=== PATIENT | male | born 1950 | race African-American/Black ===

== ENCOUNTER 2018-02-18 08:48 | Inpatient (IN) | payer MEDICAID ==
[~2018-02-18] VITALS: Ht 182.9 cm; Wt 86.2 kg
[~2018-02-18 08:48] MED LIST: AMLO10TA80 PO; AMLO5TAB4 PO; FAMO20TA8 PO; LOT10 PO; MONT10TA24 PO; P20 PO
[2018-02-18 10:07] LABS: BG CARBOXYHEMOGLOBIN 0.3 % (0.5-1.5); BG DEOXYHEMOGLOBIN 2.2 % (0.0-5.0); BG FRACTION INSPIRED OXYGEN 21; BG HCO3 ACT 16.7 mmol/L (22.0-26.0); BG METHEMOGLOBIN 0.2 % (0.0-1.5); BG OXYGEN SATURATION 97.8 % (92.0-98.5); BG OXYHEMOGLOBIN 97.3 % (94.0-97.0); BG PH 7.393 (7.350-7.450); BG PO2 98.5 mmHg (75.0-100.0); BG SAMPLE SITE RIGHT RADIAL; BG TOTAL HEMOGLOBIN 10.9 g/dL (12.0-18.0); BG VENT MODE ROOM AIR
[2018-02-18 10:09] LABS: BASOPHILS % 0.9 % (0.0-2.0); EOSINOPHILS % 3.3 % (0.0-5.0); HEMATOCRIT. 33.2 % (42.0-52.0); HEMOGLOBIN. 10.7 g/dL (14.0-18.0); LYMPHOCYTES % 12.2 % (20.0-50.0); MEAN CORPUSCULAR HEMOGLOBIN 26.8 pg (28.0-32.0); MEAN CORPUSCULAR VOLUME 83.4 fL (80.0-94.0); MEAN PLATELET VOLUME 7.9 fl (7.4-10.4); MONOCYTES % 8.9 % (2.0-8.0); NEUTROPHILS % 74.7 % (40.0-76.0); PLATELET 143 x1000/uL (130-400); RED BLOOD CELL COUNT 3.99 mill/uL (4.7-6.1); RED CELL DISTRIBUTION WIDTH 15.3 % (11.6-14.6)
[2018-02-18 10:15] LABS: PARTIAL THROMBOPLASTIN TIME 22.6 sec (23.4-31.0); PROTHROMBIN TIME 10.4 sec (9.4-11.6)
[2018-02-18] MEDS ORDERED: SODIUM BICARBONATE 8.4% 1 MEQ/ML 50ML SYR IV ONE (10:15)
[2018-02-18] MEDS ORDERED: DEXTROSE 50% WATER 50ML SYRINGE IV ONE (10:15)
[2018-02-18] MEDS ORDERED: INSULIN REGULAR (HUMULIN R) 300UNITS/3ML IV ONE (10:15)
[2018-02-18] MEDS ORDERED: CALCIUM CHLORIDE 1GM/10ML SYR IV ONE (10:15)
[2018-02-18] MEDS ORDERED: SODIUM POLYSTYRENE SULFONATE 15 G/60 ML BOT PO ONE (10:15)
[2018-02-18 10:23] LABS: PHOSPHORUS 4.2 mg/dL (2.5-4.9)
[2018-02-18 12:00] VITALS: BP 149/97
[2018-02-18] MEDS ORDERED: HEPARIN SODIUM 1,000 UNIT/1ML VIAL IV NR (14:30)
[2018-02-18] MEDS: HYDROCODONE/APAP 7.5/325MG 1 TAB TABLET PO PRN ×2 (15:57→22:35)
[2018-02-18] MEDS ORDERED: EPOETIN ALFA 4000UNITS/ML VIAL SUBCUT ONE (16:30)
[2018-02-18] MEDS: IRON SUCROSE COMPLEX 100 MG/5 ML ML IV SCH (18:50)
[2018-02-18 20:00] VITALS: BP 154/65
[2018-02-18 21:30] VITALS: BP 128/86
[2018-02-18] MEDS: AMLODIPINE 10MG TABLET PO SCH (21:37)
[2018-02-18] MEDS ORDERED: ZOLPIDEM TARTRATE 5MG TABLET PO PRN (22:00)
[2018-02-19] VITALS: BP 151/73
[2018-02-19 04:00] VITALS: BP 143/62
[2018-02-19 06:55] LABS: BASOPHILS % 0.6 % (0.0-2.0); EOSINOPHILS % 3.6 % (0.0-5.0); HEMATOCRIT. 34.1 % (42.0-52.0); HEMOGLOBIN. 11.2 g/dL (14.0-18.0); LYMPHOCYTES % 17.9 % (20.0-50.0); MEAN CORPUSCULAR HEMOGLOBIN 27.3 pg (28.0-32.0); MEAN CORPUSCULAR VOLUME 82.8 fL (80.0-94.0); MEAN PLATELET VOLUME 8.1 fl (7.4-10.4); MONOCYTES % 9.9 % (2.0-8.0); PLATELET 148 x1000/uL (130-400); RED BLOOD CELL COUNT 4.12 mill/uL (4.7-6.1); RED CELL DISTRIBUTION WIDTH 15.2 % (11.6-14.6)
[2018-02-19 08:00] VITALS: BP 128/81
[2018-02-19] MEDS: AMLODIPINE 10MG TABLET PO SCH (08:31)
[2018-02-19] MEDS: IRON SUCROSE COMPLEX 100 MG/5 ML ML IV SCH (08:32)
[2018-02-19] MEDS ORDERED: MONTELUKAST SODIUM 10MG TABLET PO SCH (09:00)
[2018-02-19] MEDS ORDERED: EPOETIN ALFA 10000UNITS/ML VIAL SUBCUT NR (21:00)
== END 2018-02-19 09:20 | disposition left against medical advice (07) | DRG 469 ==
LOC: ER 08:48 → ENRESERV 09:53 → 8WST 10:34 → EDBEDREQ 10:42
PROVIDERS: ADMIT Internal Medicine; ATTEND Internal Medicine
PROC: 5A1D70Z Performance of Urinary Filtration, Intermittent, Less than 6 Hours Per Day (ICD-10-PCS; principal; 2018-02-18)
DX: N17.9 Acute kidney failure, unspecified (principal); I12.0 Hypertensive chronic kidney disease with stage 5 chronic kidney disease or end stage renal disease; E87.8 Other disorders of electrolyte and fluid balance, not elsewhere classified; E87.5 Hyperkalemia; N18.6 End stage renal disease; D64.9 Anemia, unspecified; N40.0 Benign prostatic hyperplasia without lower urinary tract symptoms; B19.20 Unspecified viral hepatitis C without hepatic coma; J45.909 Unspecified asthma, uncomplicated; Z53.21 Procedure and treatment not carried out due to patient leaving prior to being seen by health care provider; Z99.2 Dependence on renal dialysis; Z91.19 Patient's noncompliance with other medical treatment and regimen; Z79.899 Other long term (current) drug therapy; Z88.8 Allergy status to other drugs, medicaments and biological substances
CPT/HCPCS: 36415; 36600; 71045; 80048; 82375; 82805; 83735; 84100; 84484; 85025; 85610; 85730; 93005; 96374; 99291; C1893; J1644; J3490; J7030

== ENCOUNTER 2018-03-25 09:41 | Emergency (ER) | payer MEDICAID ==
[~2018-03-25] VITALS: Ht 177.8 cm; Wt 76.0 kg
[2018-03-25 12:02] LABS: BASOPHILS % 0.4 % (0.0-2.0); EOSINOPHILS % 2.7 % (0.0-5.0); HEMATOCRIT. 28.6 % (42.0-52.0); HEMOGLOBIN. 9.7 g/dL (14.0-18.0); LYMPHOCYTES % 13.4 % (20.0-50.0); MEAN CORPUSCULAR HEMOGLOBIN 28.6 pg (28.0-32.0); MEAN CORPUSCULAR VOLUME 84.3 fL (80.0-94.0); MEAN PLATELET VOLUME 8.2 fl (7.4-10.4); MONOCYTES % 8.9 % (2.0-8.0); NEUTROPHILS % 74.6 % (40.0-76.0); PLATELET 154 x1000/uL (130-400); RED BLOOD CELL COUNT 3.39 mill/uL (4.7-6.1); RED CELL DISTRIBUTION WIDTH 17.5 % (11.6-14.6)
[2018-03-25 12:10] LABS: PARTIAL THROMBOPLASTIN TIME 24.7 sec (23.4-31.0); PROTHROMBIN TIME 10.1 sec (9.1-11.1)
[2018-03-25 12:12] LABS: PHOSPHORUS 3.2 mg/dL (2.5-4.9)
[2018-03-25 13:19] LABS: HEPATITIS B SURFACE ANTIGEN NEGATIVE
[2018-03-25] MEDS ORDERED: HYDROCODONE/ACETAMINOPHEN 5/325MG TABLET PO PRN (13:45)
[2018-03-25] MEDS ORDERED: LIDOCAINE HCL 1% 20ML VIAL (Pyxis) INJ ONE (14:54)
[2018-03-25] MEDS ORDERED: SODIUM BICARBONATE 4% (2.4MEQ) 5ML VIAL IV ONE (14:54)
[2018-03-25] MEDS ORDERED: HEPARIN 1000 UNITS/ML 10ML ONE (14:55)
[2018-03-25 16:22] VITALS: BP 140/80
[2018-03-25] MEDS ORDERED: ACETAMINOPHEN 325MG TABLET PO PRN (17:00)
[2018-03-25] MEDS ORDERED: CLONIDINE 0.1MG TABLET PO PRN (17:00)
[2018-03-25] MEDS ORDERED: DIPHENHYDRAMINE 50MG/ML VIAL IV PRN (17:00)
[2018-03-25] MEDS ORDERED: AMLODIPINE 10MG TABLET PO SCH (21:00)
== END 2018-03-25 16:26 | disposition left against medical advice (07) ==
LOC: ER 09:41 → EDBEDREQ 12:32 → ENRESERV 13:03 → CANRESERV 13:03 → ER 16:26 → CANBEDREQ 18:00
DX: T82.42XA Displacement of vascular dialysis catheter, initial encounter (principal); I13.2 Hypertensive heart and chronic kidney disease with heart failure and with stage 5 chronic kidney disease, or end stage renal disease; N18.6 End stage renal disease; E87.8 Other disorders of electrolyte and fluid balance, not elsewhere classified; D64.9 Anemia, unspecified; J45.909 Unspecified asthma, uncomplicated; Z99.2 Dependence on renal dialysis; Z91.15 Patient's noncompliance with renal dialysis; Z88.8 Allergy status to other drugs, medicaments and biological substances; Z86.19 Personal history of other infectious and parasitic diseases
CPT/HCPCS: 36415; 36558; 71045; 76937; 77001; 80048; 83735; 84100; 85025; 85610; 85730; 99285; C1750; J1644; J3490; Z7610

== ENCOUNTER 2018-10-09 11:36 | Inpatient (IN) | payer MEDICARE, MEDICAID ==
[~2018-10-09] VITALS: Ht 182.9 cm; Wt 79.4 kg
[~2018-10-09 11:36] MED LIST changes: +ALBU18HF2 IH; -AMLO5TAB4 PO; +FURO20TA4 MT; -P20 PO
[2018-10-09] MEDS ORDERED: ONDANSETRON HCL 4MG/2ML INJ IV STA (16:21)
[2018-10-09] MEDS ORDERED: TRAMADOL 50MG TABLET PO ONE (16:30)
[2018-10-09 17:01] LABS: INR 1.1; PROTHROMBIN TIME 11.1 sec (9.1-11.1)
[2018-10-09 17:05] LABS: BASOPHILS % 0.7 % (0.0-2.0); EOSINOPHILS % 3.3 % (0.0-5.0); HEMATOCRIT. 37.9 % (42.0-52.0); HEMOGLOBIN. 12.2 g/dL (14.0-18.0); LYMPHOCYTES % 21.9 % (20.0-50.0); MEAN CORPUSCULAR HEMOGLOBIN 26.7 pg (28.0-32.0); MEAN CORPUSCULAR VOLUME 82.7 fL (80.0-94.0); MEAN PLATELET VOLUME 7.7 fl (7.4-10.4); MONOCYTES % 7.6 % (2.0-8.0); NEUTROPHILS % 66.5 % (40.0-76.0); PLATELET 155 x1000/uL (130-400); RED BLOOD CELL COUNT 4.59 mill/uL (4.7-6.1); RED CELL DISTRIBUTION WIDTH 15.2 % (11.6-14.6)
[2018-10-09 17:11] LABS: CHLORIDE 103 mEq/L (98-107)
[2018-10-09] MEDS ORDERED: VANCOMYCIN 1 G PREMIX 200 ML IV ONE (17:30)
[2018-10-09] MEDS ORDERED: PIPERACILLIN/TAZ 3.375G PREMIX 50 ML IV ONE (17:30)
[2018-10-10] MEDS ORDERED: IPRATROPIUM/ALBUTEROL 0.5-3(2.5)MG/3ML NEB HHN PRN (01:45)
[2018-10-10] MEDS ORDERED: ACETAMINOPHEN 325MG TABLET PO PRN (09:00)
[2018-10-10] MEDS ORDERED: ONDANSETRON HCL 4MG/2ML INJ IV PRN (09:00)
[2018-10-10 09:24] LABS: BASOPHILS % 0.7 % (0.0-2.0); HEMATOCRIT. 39.5 % (42.0-52.0); HEMOGLOBIN. 12.8 g/dL (14.0-18.0); LYMPHOCYTES % 18.9 % (20.0-50.0); MONOCYTES % 7.4 % (2.0-8.0); RED BLOOD CELL COUNT 4.76 mill/uL (4.7-6.1); RED CELL DISTRIBUTION WIDTH 15.4 % (11.6-14.6)
[2018-10-10 09:47] LABS: PLATELET 136 x1000/uL (130-400)
[2018-10-10] MEDS ORDERED: AMLODIPINE 5MG TABLET PO NR (10:00)
[2018-10-10] MEDS: HYDROCODONE/ACETAMINOPHEN 10/325MG TABLET PO PRN ×3 (14:05→23:06)
[2018-10-10] MEDS: LOSARTAN POTASSIUM 100 MG TABLET PO SCH (14:52)
[2018-10-10 15:56] VITALS: BP_SYST 171; BP_SYST 173; BP_DIAS 104; BP_DIAS 93; BP_DIAS 99
[2018-10-10 16:07] VITALS: BP 189/106
[2018-10-10] MEDS ORDERED: FERR325T30 PO (16:13)
[2018-10-10] MEDS ORDERED: CLONIDINE 0.1MG TABLET PO PRN (16:30)
[2018-10-10 18:00] VITALS: BP 150/85
[2018-10-10] MEDS ORDERED: HYDROCODONE/ACETAMINOPHEN 10/325MG TABLET PO PRN (18:00)
[2018-10-10 20:00] VITALS: BP 130/76
[2018-10-10] MEDS ORDERED: AMLODIPINE 5MG TABLET PO SCH ×2 (21:00)
[2018-10-10] MEDS: AMLODIPINE 5MG TABLET PO SCH (21:06)
[2018-10-10] MEDS: DIPHENHYDRAMINE 25MG CAPSULE PO PRN (23:05)
[2018-10-11] VITALS: BP 139/79
[2018-10-11 04:00] VITALS: BP_SYST 134; BP_SYST 137; BP_SYST 138; BP_DIAS 77; BP_DIAS 78; BP_DIAS 80
[2018-10-11] MEDS: DIPHENHYDRAMINE 25MG CAPSULE PO PRN (07:18)
[2018-10-11] MEDS: HYDROCODONE/ACETAMINOPHEN 10/325MG TABLET PO PRN ×3 (07:18→18:37)
[2018-10-11 08:00] VITALS: BP 147/83
[2018-10-11] MEDS: AMLODIPINE 5MG TABLET PO SCH (09:00)
[2018-10-11] MEDS: LOSARTAN POTASSIUM 100 MG TABLET PO SCH (09:00)
[2018-10-11] MEDS ORDERED: DIPHENHYDRAMINE 50MG/ML VIAL IV PRN (13:15)
[2018-10-11] MEDS ORDERED: CEFTRIAXONE 1,000 MG in DEXTROSE 5% WATER 50 ML IV SCH (18:00)
[2018-10-11] MEDS: FAMOTIDINE 20MG/2ML VIAL IV SCH (18:24)
[2018-10-11] MEDS: METHYLPREDNISOLONE SOD SUCC 40 MG/ML VIAL IV SCH (18:24)
[2018-10-11 20:00] VITALS: BP_SYST 119; BP_SYST 138; BP_SYST 145; BP_DIAS 71; BP_DIAS 84; BP_DIAS 90
[2018-10-11] MEDS: HYDRALAZINE HCL 50MG TABLET PO SCH (21:00)
[2018-10-11] MEDS: METOPROLOL TARTRATE 50MG TABLET PO SCH (21:00)
[2018-10-12] VITALS: BP 140/83
[2018-10-12] MEDS: METHYLPREDNISOLONE SOD SUCC 40 MG/ML VIAL IV SCH ×2 (02:08→09:10)
[2018-10-12 04:00] VITALS: BP 137/86
[2018-10-12 08:12] VITALS: BP 165/97
[2018-10-12] MEDS: HYDRALAZINE HCL 50MG TABLET PO SCH (08:16)
[2018-10-12] MEDS: FAMOTIDINE 20MG/2ML VIAL IV SCH (08:16)
[2018-10-12] MEDS: DIPHENHYDRAMINE 25MG CAPSULE PO PRN (08:16)
[2018-10-12] MEDS: HYDROCODONE/ACETAMINOPHEN 10/325MG TABLET PO PRN (08:16)
[2018-10-12] MEDS: METOPROLOL TARTRATE 50MG TABLET PO SCH (08:16)
[2018-10-12 10:28] VITALS: BP 144/84
== END 2018-10-12 12:25 | disposition home or self-care (01) | DRG 720 ==
LOC: ER 11:36 → EDBEDREQSVC 17:50 → EDBEDREQ 17:50 → ENRESERV 10-10 13:36 → ER 10-10 15:12 → 8WST 10-10 15:34 → OBSVTOIN 10-10 15:34
PROVIDERS: ADMIT Internal Medicine; ATTEND Internal Medicine
PROC: 5A1D70Z Performance of Urinary Filtration, Intermittent, Less than 6 Hours Per Day (ICD-10-PCS; principal; 2018-10-11)
DX: A41.9 Sepsis, unspecified organism (principal); I13.2 Hypertensive heart and chronic kidney disease with heart failure and with stage 5 chronic kidney disease, or end stage renal disease; N18.6 End stage renal disease; I42.9 Cardiomyopathy, unspecified; G90.8 Other disorders of autonomic nervous system; J44.9 Chronic obstructive pulmonary disease, unspecified; B19.20 Unspecified viral hepatitis C without hepatic coma; J98.11 Atelectasis; G89.29 Other chronic pain; D63.8 Anemia in other chronic diseases classified elsewhere; N39.0 Urinary tract infection, site not specified; R26.2 Difficulty in walking, not elsewhere classified; M54.5 Low back pain; I50.21 Acute systolic (congestive) heart failure; T78.3XXA Angioneurotic edema, initial encounter; Z88.8 Allergy status to other drugs, medicaments and biological substances; Z99.2 Dependence on renal dialysis
CPT/HCPCS: 36415; 71045; 80048; 83605; 84145; 84484; 87077; 87186; 93005; 93306; 93970; 96365; 96375; 97162; 99285; J0696; J1200; J2405; J2543; J2920; J3370; J3490; J7040; J7060; Q0163

== ENCOUNTER 2018-10-25 06:29 | Inpatient (IN) | payer MEDICARE, MEDICAID ==
[~2018-10-25] VITALS: Ht 182.9 cm; Wt 82.1 kg
[~2018-10-25 06:29] MED LIST changes: -AMLO10TA80 PO; +FERR325T30 PO; -LOT10 PO
[2018-10-25] MEDS ORDERED: SODIUM CHLORIDE 0.9% 1,000 ML IV ONE (06:37)
[2018-10-25] MEDS ORDERED: ADENOSINE 3 MG/ML 2ML VIAL IV ONE ×2 (06:45)
[2018-10-25 06:53] LABS: BASOPHILS % 0.5 % (0.0-2.0); CHLORIDE 114 mEq/L (98-107); EOSINOPHILS % 2.4 % (0.0-5.0); HEMATOCRIT. 37.6 % (42.0-52.0); LYMPHOCYTES % 16.8 % (20.0-50.0); MEAN CORPUSCULAR HEMOGLOBIN 27.1 pg (28.0-32.0); MEAN CORPUSCULAR VOLUME 85.3 fL (80.0-94.0); MEAN PLATELET VOLUME 7.9 fl (7.4-10.4); MONOCYTES % 6.8 % (2.0-8.0); NEUTROPHILS % 73.5 % (40.0-76.0); PLATELET 124 x1000/uL (130-400); RED BLOOD CELL COUNT 4.41 mill/uL (4.7-6.1); RED CELL DISTRIBUTION WIDTH 16.9 % (11.6-14.6)
[2018-10-25 06:55] LABS: INR 1.1; PROTHROMBIN TIME 10.8 sec (9.1-11.1)
[2018-10-25] MEDS ORDERED: MIDAZOLAM HCL 2 MG/2 ML VIAL IV ONE ×2 (07:00→07:15)
[2018-10-25] MEDS ORDERED: MIDAZOLAM HCL 2 MG/2 ML VIAL ONE (07:02)
[2018-10-25] MEDS ORDERED: METOPROLOL TARTRATE 25MG TABLET PO ONE (07:15)
[2018-10-25] MEDS ORDERED: ASPIRIN 81MG TABLET PO ONE (07:30)
[2018-10-25] MEDS ORDERED: NITROGLYCERIN OINT 1GM/INCH UDPKT TD ONE ×2 (08:45→15:00)
[2018-10-25] MEDS ORDERED: HYDROCODONE/ACETAMINOPHEN 5/325MG TABLET PO ONE (11:45)
[2018-10-25] MEDS ORDERED: FUROSEMIDE 40MG/4ML VIAL IVP ONE (15:00)
[2018-10-25] MEDS ORDERED: ALBUTEROL (0.083%) 2.5MG/3ML NEB HHN STA (15:48)
[2018-10-25] MEDS ORDERED: IPRATROPIUM/ALBUTEROL 0.5-3(2.5)MG/3ML NEB HHN PRN (17:00)
[2018-10-25] MEDS ORDERED: METOPROLOL TARTRATE 25MG TABLET PO NR (17:00)
[2018-10-25 17:27] LABS: BG BASE EXCESS -3.9 mmol/L (-2.0-2.0); BG BILEVEL POS AIRWAY PRESSURE 15/5; BG CARBOXYHEMOGLOBIN 0.3 % (0.5-1.5); BG DEOXYHEMOGLOBIN 0.8 % (0.0-5.0); BG HCO3 ACT 19.6 mmol/L (22.0-26.0); BG METHEMOGLOBIN 0.3 % (0.0-1.5); BG OXYGEN SATURATION 99.2 % (92.0-98.5); BG OXYHEMOGLOBIN 98.6 % (94.0-97.0); BG PCO2 30.7 mmHg (35.0-45.0); BG PH 7.423 (7.350-7.450); BG PO2 232.1 mmHg (75.0-100.0); BG SAMPLE SITE RIGHT RADIAL; BG TOTAL HEMOGLOBIN 11.4 g/dL (12.0-18.0); BG VENT MODE MASK - BIPAP; BG VENT RATE 14 set
[2018-10-25] MEDS ORDERED: MORPHINE SULFATE 4 MG/ML CPJ (NOT FOR IM USE) IV NR (18:30)
[2018-10-25] MEDS ORDERED: DOCUSATE SODIUM 100MG CAPSULE PO PRN (18:45)
[2018-10-25] MEDS ORDERED: ONDANSETRON HCL 4MG/2ML INJ IV PRN (18:45)
[2018-10-25] MEDS ORDERED: DIGOXIN 500MCG/2ML AMP IV NR (19:00)
[2018-10-25] MEDS ORDERED: FUROSEMIDE 40MG/4ML VIAL IV NR (20:15)
[2018-10-25 22:34] VITALS: BP 185/77
[2018-10-25 22:45] VITALS: BP 182/102
[2018-10-25 23:00] VITALS: BP 164/87
[2018-10-25 23:15] VITALS: BP 160/89
[2018-10-25 23:30] VITALS: BP 166/88
[2018-10-25 23:45] VITALS: BP 175/104
[2018-10-25] MEDS: IPRATROPIUM/ALBUTEROL 0.5-3(2.5)MG/3ML NEB HHN SCH (23:48)
[2018-10-26] VITALS (68 sets, daily range): BP systolic 30–189; BP diastolic 15–115
[2018-10-26] MEDS: HYDRALAZINE HCL 50MG TABLET PO SCH ×4 (00:35→21:19)
[2018-10-26] MEDS: CLONIDINE 0.1MG TABLET PO SCH ×4 (00:36→21:18)
[2018-10-26] MEDS: IPRATROPIUM/ALBUTEROL 0.5-3(2.5)MG/3ML NEB HHN SCH ×5 (04:31→20:28)
[2018-10-26] MEDS: HYDROCODONE/ACETAMINOPHEN 5/325MG TABLET PO PRN (05:05)
[2018-10-26 06:26] LABS: BASOPHILS % 0.4 % (0.0-2.0); EOSINOPHILS % 1.7 % (0.0-5.0); HEMATOCRIT. 30.2 % (42.0-52.0); HEMOGLOBIN. 9.9 g/dL (14.0-18.0); LYMPHOCYTES % 8.4 % (20.0-50.0); MEAN CORPUSCULAR HEMOGLOBIN 27.3 pg (28.0-32.0); MEAN CORPUSCULAR VOLUME 83.4 fL (80.0-94.0); MONOCYTES % 6.8 % (2.0-8.0); NEUTROPHILS % 82.7 % (40.0-76.0); PLATELET 107 x1000/uL (130-400); RED BLOOD CELL COUNT 3.62 mill/uL (4.7-6.1); RED CELL DISTRIBUTION WIDTH 16.3 % (11.6-14.6)
[2018-10-26 06:42] LABS: PHOSPHORUS 2.7 mg/dL (2.5-4.9)
[2018-10-26 06:46] LABS: T4 FREE 1.05 ng/dL (0.76-1.46)
[2018-10-26 07:02] LABS: DIGOXIN 0.4 ng/mL (0.9-2.0)
[2018-10-26] MEDS: BUDESONIDE 0.5MG/2ML NEB HHN SCH ×2 (08:47→20:28)
[2018-10-26] MEDS ORDERED: MORPHINE SULFATE 4 MG/ML CPJ (NOT FOR IM USE) IV NR (09:00)
[2018-10-26] MEDS: PANTOPRAZOLE SODIUM 40 MG/VIAL IV SCH (09:59)
[2018-10-26] MEDS: METOPROLOL TARTRATE 25MG TABLET PO SCH ×2 (10:00→21:19)
[2018-10-26] MEDS: HYDROCODONE/APAP 7.5/325MG 1 TAB TABLET PO PRN ×2 (14:36→20:41)
[2018-10-26] MEDS ORDERED: DIGOXIN 500MCG/2ML AMP IV SCH (18:00)
[2018-10-26] MEDS: DIGOXIN 500MCG/2ML AMP IV SCH (18:04)
[2018-10-27] VITALS (11 sets, daily range): BP systolic 123–147; BP diastolic 68–84
[2018-10-27] MEDS: IPRATROPIUM/ALBUTEROL 0.5-3(2.5)MG/3ML NEB HHN SCH ×6 (00:58→20:38)
[2018-10-27] MEDS: HYDROCODONE/APAP 7.5/325MG 1 TAB TABLET PO PRN (05:51)
[2018-10-27 06:29] LABS: BASOPHILS % 0.4 % (0.0-2.0); EOSINOPHILS % 3.1 % (0.0-5.0); HEMATOCRIT. 29.6 % (42.0-52.0); HEMOGLOBIN. 9.5 g/dL (14.0-18.0); LYMPHOCYTES % 12.9 % (20.0-50.0); MEAN CORPUSCULAR HEMOGLOBIN 27.1 pg (28.0-32.0); MEAN CORPUSCULAR VOLUME 84.1 fL (80.0-94.0); MEAN PLATELET VOLUME 8.6 fl (7.4-10.4); MONOCYTES % 8.6 % (2.0-8.0); PLATELET 100 x1000/uL (130-400); RED BLOOD CELL COUNT 3.52 mill/uL (4.7-6.1); RED CELL DISTRIBUTION WIDTH 16.2 % (11.6-14.6)
[2018-10-27] MEDS ORDERED: DIPHENHYDRAMINE 50MG/ML VIAL IV PRN (07:00)
[2018-10-27] MEDS: CLONIDINE 0.1MG TABLET PO SCH ×3 (07:40→22:07)
[2018-10-27] MEDS: HYDRALAZINE HCL 50MG TABLET PO SCH ×3 (07:40→22:06)
[2018-10-27] MEDS: BUDESONIDE 0.5MG/2ML NEB HHN SCH (08:11)
[2018-10-27] MEDS: PANTOPRAZOLE SODIUM 40 MG/VIAL IV SCH (08:47)
[2018-10-27] MEDS: METOPROLOL TARTRATE 25MG TABLET PO SCH ×2 (09:00→22:06)
[2018-10-27] MEDS: HYDROCODONE/ACETAMINOPHEN 5/325MG TABLET PO PRN ×2 (13:23→17:40)
[2018-10-27] MEDS: DIGOXIN 500MCG/2ML AMP IV SCH (18:45)
[2018-10-27] MEDS: GUAIFENESIN 600MG ER TABLET PO SCH (22:06)
[2018-10-28] VITALS (9 sets, daily range): BP systolic 125–151; BP diastolic 75–89
[2018-10-28] MEDS: HYDROCODONE/APAP 7.5/325MG 1 TAB TABLET PO PRN (01:31)
[2018-10-28] MEDS: IPRATROPIUM/ALBUTEROL 0.5-3(2.5)MG/3ML NEB HHN SCH ×3 (02:32→09:01)
[2018-10-28] MEDS: BUDESONIDE 0.5MG/2ML NEB HHN SCH ×2 (05:44→09:00)
[2018-10-28] MEDS: HYDRALAZINE HCL 50MG TABLET PO SCH ×2 (07:05→13:48)
[2018-10-28] MEDS: CLONIDINE 0.1MG TABLET PO SCH ×2 (07:05→13:48)
[2018-10-28 08:44] LABS: BASOPHILS % 0.3 % (0.0-2.0); EOSINOPHILS % 3.8 % (0.0-5.0); HEMATOCRIT. 31.1 % (42.0-52.0); HEMOGLOBIN. 10.1 g/dL (14.0-18.0); LYMPHOCYTES % 17.8 % (20.0-50.0); MEAN CORPUSCULAR HEMOGLOBIN 27.2 pg (28.0-32.0); MEAN PLATELET VOLUME 8.7 fl (7.4-10.4); MONOCYTES % 11.8 % (2.0-8.0); NEUTROPHILS % 66.3 % (40.0-76.0); PLATELET 111 x1000/uL (130-400); RED CELL DISTRIBUTION WIDTH 16.3 % (11.6-14.6)
[2018-10-28] MEDS: GUAIFENESIN 600MG ER TABLET PO SCH (08:46)
[2018-10-28] MEDS: PANTOPRAZOLE SODIUM 40 MG/VIAL IV SCH (08:46)
[2018-10-28] MEDS: METOPROLOL TARTRATE 25MG TABLET PO SCH (08:47)
[2018-10-28] MEDS: HYDROCODONE/ACETAMINOPHEN 5/325MG TABLET PO PRN (08:50)
== END 2018-10-28 15:42 | disposition home or self-care (01) | DRG 133 ==
LOC: ER 06:29 → MICUNO 07:48 → EDBEDREQTM 08:05 → EDBEDREQ 08:05 → EDBEDREQSVC 14:48 → EDBEDREQTM 14:52 → EDBEDREQ 14:52 → EDBEDREQSVC 20:11 → ENRESERV 20:55 → 5EST 10-26 23:59
PROVIDERS: ADMIT Family Medicine Adult Medicine; ATTEND Family Medicine Adult Medicine
PROC: 5A1D70Z Performance of Urinary Filtration, Intermittent, Less than 6 Hours Per Day (ICD-10-PCS; 2018-10-25)
PROC: 5A09357 Assistance with Respiratory Ventilation, Less than 24 Consecutive Hours, Continuous Positive Airway Pressure (ICD-10-PCS; 2018-10-25)
PROC: 5A1D70Z Performance of Urinary Filtration, Intermittent, Less than 6 Hours Per Day (ICD-10-PCS; principal; 2018-10-27)
DX: J96.00 Acute respiratory failure, unspecified whether with hypoxia or hypercapnia (principal); I13.2 Hypertensive heart and chronic kidney disease with heart failure and with stage 5 chronic kidney disease, or end stage renal disease; D69.6 Thrombocytopenia, unspecified; I42.9 Cardiomyopathy, unspecified; N18.6 End stage renal disease; I47.1 Supraventricular tachycardia; J45.901 Unspecified asthma with (acute) exacerbation; J44.9 Chronic obstructive pulmonary disease, unspecified; I50.43 Acute on chronic combined systolic (congestive) and diastolic (congestive) heart failure; B19.20 Unspecified viral hepatitis C without hepatic coma; Z82.49 Family history of ischemic heart disease and other diseases of the circulatory system; Z87.891 Personal history of nicotine dependence; Z99.2 Dependence on renal dialysis; D64.9 Anemia, unspecified
CPT/HCPCS: 36415; 36600; 71045; 80048; 80061; 80162; 82375; 82805; 83036; 83540; 83550; 83605; 83735; 83880; 84100; 84439; 84443; 84481; 84484; 85044; 93005; 93970; 96374; 96375; 97162; 97166; 99291; C9113; J0153; J1160; J1200; J1940; J2250; J2270; J7030; J7611; J7620; J7626